=== PATIENT | female | born 1950 | race Caucasian/White ===

== ENCOUNTER → 2018-07-29 | Outpatient (CLI) | payer MEDICARE, BC ==
[~2018-07-29] MED LIST: Barium Sulfate w/v 2.1% Oral Susp 450 ML Bottle PO ONE; Iopamidol 612 MG/ML 75 ML Bottle IVPUSH ONE
== END ==
LOC: DL.CT 09:16
PROVIDERS: ATTEND Internal Medicine Gastroenterology
DX: R10.2 Pelvic and perineal pain (principal); R93.2 Abnormal findings on diagnostic imaging of liver and biliary tract; K57.30 Diverticulosis of large intestine without perforation or abscess without bleeding
CPT/HCPCS: 74177; Q9967

== ENCOUNTER 2018-08-09 05:29 | Day surgery (SDC) | payer MEDICARE, BC ==
[~2018-08-09 05:29] MED LIST changes: -Barium Sulfate w/v 2.1% Oral Susp 450 ML Bottle PO ONE; +Dextrose 5%-0.45% NaCl 1,000 ML IV SCH; -Iopamidol 612 MG/ML 75 ML Bottle IVPUSH ONE; +Sodium Chloride 0.9% 10 ML Syringe FLUSH PRN
[2018-08-09] MEDS ORDERED: Midazolam 1 MG/ML 2 ML SDV IV ONE ×3 (05:30→06:30)
[2018-08-09] MEDS ORDERED: fentaNYL 100 MCG/2 ML SDV IV ONE ×3 (05:30→06:29)
[2018-08-09] MEDS ORDERED: Midazolam 1 MG/ML 2 ML SDV ONE (06:09)
[2018-08-09] MEDS ORDERED: fentaNYL 100 MCG/2 ML SDV ONE (06:10)
[2018-08-09 08:45] VITALS: BP 103/75; PULSE 48
--- NOTE | 2018-08-09 11:34 | OR ---
DATE: 08/09/2018 PROCEDURE PERFORMED: Total colonoscopy. INSTRUMENT USED: PCF-H190DL Olympus video colonoscope. PREMEDICATIONS: Fentanyl 100 mcg intravenous, Versed 2.5 mg intravenous. Nasal O2 cannula. The procedure was done under pulse oximetry, BP recording, and monitoring tech. INDICATION: The patient with persistent pelvic and lower abdominal pain, unexplained and not responsive to medical measures. Colonoscopic examination is done for detection of any polypoid lesions and removal, endoscopic hemostasis therapy if needed. DESCRIPTION OF PROCEDURE: Initial rectal exam was unremarkable. Rigid anoscopy showed pigmentation at the distal rectal mucosa consistent with melanosis coli. The colonoscope was passed with ease. Photograph was taken of the rectal area. Scattered diverticula were noted in the distal left colon along with some deformity. The scope was passed with ease up to the ileocecal area. Photographs were taken of the cecum, identified by landmarks of appendiceal orifice and double-bulged ileocecal folds. No bleeding was noted from any of the visualized areas at the commencement of the examination. No stricture. No vascular ectasia. No large isolated ulcerations seen. No evidence of diffuse inflammatory bowel disease in the form of friability, contact bleeding, or ulcerations. No polyp or tumor mass identified. Probing the proximal sides of folds and flexures using adequate distention and clearing up the stool material, withdrawal of the scope was made, cecum to rectum, time over 6 minutes. No bleeding was noted from any of the visualized areas at the completion of the examination. There was moderate amount of liquid material that had to be aspirated clear. The bowel preparation otherwise was found to be adequate, [place] scale 2 in the right colon and 3 in transverse and left colon. IMPRESSION: 1. Melanosis coli. 2. Diverticulosis. The patient tolerated the procedure well. [facility] /[id number]
== END 2018-08-09 09:00 | disposition home or self-care (01) ==
LOC: DL.ENDO 05:29
PROVIDERS: ATTEND Internal Medicine Gastroenterology
DX: K57.30 Diverticulosis of large intestine without perforation or abscess without bleeding (principal); K63.89 Other specified diseases of intestine; E66.09 Other obesity due to excess calories; E78.5 Hyperlipidemia, unspecified; E80.6 Other disorders of bilirubin metabolism; Z68.30 Body mass index [BMI] 30.0-30.9, adult
CPT/HCPCS: G0121; J2250; J3010; J7042

== ENCOUNTER 2024-10-25 07:24 | Day surgery (SDC) | payer MEDICARE, BC ==
[2024-10-25] MEDS: Povidone-Iodine 5% Sterile Ophth Soln 30 ML Bottle EYELF ONE ×2 (07:51→08:50)
[2024-10-25] MEDS: Moxifloxacin 0.5% Ophth Soln 3 ML Bottle EYELF ONE (07:53)
[2024-10-25] MEDS: Phenylephrine 10% Ophth Soln 5 ML Bot EYELF PRN (07:54)
[2024-10-25] MEDS: Timolol Maleate 0.5% Ophth Soln 5 ML Bottle EYELF ONE (07:55)
[2024-10-25] MEDS: Cataract Ophth Solution EYELF ONE (07:56)
[2024-10-25] MEDS ORDERED: Ondansetron 4 MG/2 ML SDV IVPUSH PRN (08:30)
[2024-10-25] MEDS: Apraclonidine 0.5% Ophth Soln 5 ML Bot EYELF ONE (08:51)
[2024-10-25] MEDS: Diclofenac Sodium 0.1% Ophth Soln 5 ML Bottle EYELF ONE (08:51)
[2024-10-25] MEDS: Dexamethasone/Neomycin/Polymyxin B Ophth Oint 3.5 GM Tube EYELF ONE (08:52)
[2024-10-25] MEDS ORDERED: Dexamethasone 4 MG/ML SDV ONE (09:25)
[2024-10-25 12:49] VITALS: BP 142/76; PULSE 62
== END 2024-10-25 09:42 | disposition home or self-care (01) ==
LOC: DL.SDS 07:24
PROVIDERS: ATTEND Ophthalmology
DX: H25.812 Combined forms of age-related cataract, left eye (principal); E78.5 Hyperlipidemia, unspecified; Z79.899 Other long term (current) drug therapy
CPT/HCPCS: 66984; A9270; J2003; J3373; J3490